=== PATIENT | male | born 1950 | race Two or more races ===

== ENCOUNTER 2017-03-05 16:07 | Emergency (ER) | payer SELFPAY ==
[~2017-03-05] VITALS: Ht 167.6 cm; Wt 63.5 kg
[2017-03-05] MEDS ORDERED: IV NS 0.9% 1,000 ML BAG IV ONE (16:30)
[2017-03-05] MEDS ORDERED: methylPREDNISolone SOD SUCC 125 MG/2ML VIAL IV ONE (16:30)
[2017-03-05] MEDS ORDERED: FAMOTIDINE/PF INJ 40 MG in IV D5W 250 ML IV ONE (16:30)
--- NOTE | 2017-03-05 16:35 | NUR ---
BBRA FROM HOME FOR BEE STING X 1 HOUR MARRIAGE AND [employer]ILY [employer]. BENADRYL 50MG GIVEN IN FIELD. PATIENT STATING HE IS ALLERGIC TO BEES BUT NO SOB AT THIS TIME. FEELS SLIGHTLY WARM TO TOUCH. CHEST REDNESS APPARENT. A/OX 4. VITALS STABLE. SAFETY AND COMFORT MEASURES IN PLACE. AWAITING MD ORDERS.
[2017-03-05 16:37] LABS: BASOPHILS % (AUTO) 0.8 % (0.0-2.0); EOSINOPHILS # (AUTO) 0.1 /CMM (0.0-0.7); EOSINOPHILS % (AUTO) 1.2 % (0.0-6.0); HEMATOCRIT 43 % (39-51); HEMOGLOBIN 14.5 g/dL (13.5-17.5); MEAN CORPUSCULAR HEMOGLOBIN 30 PG (26.0-33.0); MEAN CORPUSCULAR HGB CONC 34 g/dl (31.0-36.0); MEAN CORPUSCULAR VOLUME 87 fL (80-96); MONOCYTES # (AUTO) 0.3 /CMM (0.1-1.30); MONOCYTES % (AUTO) 5.7 % (2.0-12.0); NEUTROPHILS # (AUTO) 3.8 /CMM (1.8-8.9); NEUTROPHILS % (AUTO) 73.3 % (43.0-81.0); PLATELET COUNT (AUTO) 219 /CMM (150-450); RDW COEFFICIENT OF VARIATION 12.1 (11.5-15.0); RED BLOOD CELL COUNT(AUTO) 4.91 MIL/uL (4.5-6.0); WHITE BLOOD COUNT (AUTO) 5.2 K/uL (4.3-11.0)
[2017-03-05 16:47] LABS: CALCIUM, SERUM 8.9 mg/dL (8.5-10.1); POTASSIUM 3.9 mmol/L (3.5-5.1)
[2017-03-05] MEDS ORDERED: methylPREDNISolone SOD SUCC 125 MG/2ML VIAL ONE (17:33)
[2017-03-05] MEDS ORDERED: FAMOTIDINE/PF INJ 20 MG/2 ML VIAL IV ONE (17:33)
--- NOTE | 2017-03-05 17:45 | NUR ---
PATIENT MEDICATED PER MD ORDERS. NO DISTRESS NOTED.
--- NOTE | 2017-03-05 17:46 | NUR ---
PER DR. CASAREZ, GIVE PEPCIC 40 MG IVP INSTEAD OF IVPB. MEDICATION ADMINISTERED.
--- NOTE | 2017-03-05 18:08 | NUR ---
IV removed. Catheter intact and site benign. Pressure and 4x4 applied to site. No bleeding noted.
--- NOTE | 2017-03-05 18:08 | NUR ---
Patient discharged to home in stable condition. Written and verbal after care instructions given. Patient verbalizes understanding of instruction.
[2017-03-05 18:09] VITALS: BP 155/78
== END 2017-03-05 18:10 | disposition home or self-care (01) ==
LOC: ER 16:09
DX: T63.441A Toxic effect of venom of bees, accidental (unintentional), initial encounter (principal); Y92.89 Other specified places as the place of occurrence of the external cause
CPT/HCPCS: 36415; 80048; 85025; 96361; 96374; 99284; A4606; J2930; J3490; J7030; Z7610

== ENCOUNTER 2017-07-25 17:03 | Emergency (ER) | payer OTHER ==
[~2017-07-25] VITALS: Ht 170.2 cm; Wt 65.8 kg
[2017-07-25] MEDS ORDERED: predniSONE 20 MG TABLET ONE (17:40)
[2017-07-25] MEDS ORDERED: FAMOTIDINE (20 MG) 20 MG TABLET ONE ×2 (17:40→17:43)
--- NOTE | 2017-07-25 17:43 | NUR ---
Patient discharged to home in stable condition. Written and verbal after care instructions given. Patient verbalizes understanding of instruction.
[2017-07-25 17:45] VITALS: BP 184/99
[2017-07-25] MEDS ORDERED: FAMOTIDINE (20 MG) 20 MG TABLET PO ONE (18:00)
[2017-07-25] MEDS ORDERED: predniSONE 20 MG TABLET PO ONE (18:00)
== END 2017-07-25 17:47 | disposition home or self-care (01) ==
LOC: EDBD 17:04 → ER 17:04
DX: L50.0 Allergic urticaria (principal); I10 Essential (primary) hypertension
CPT/HCPCS: A4606; Z7610